=== PATIENT | male | born 1945 | race Caucasian/White ===

== ENCOUNTER → 2020-11-03 | Day surgery (SDC) | payer MEDICARE ==
[~2020-11-03] MED LIST: ALLOPURINOL100 MG PO; BRILINTA90 MG PO; CHILDREN'S ASPI81 MG PO; LEVOTHYROXINE50 MC1 PO; PRINIVIL20 MG PO
== END | disposition home or self-care (01) ==
LOC: CATH 10-26 07:30
DX: I08.3 Combined rheumatic disorders of mitral, aortic and tricuspid valves (principal); I25.10 Atherosclerotic heart disease of native coronary artery without angina pectoris; I42.9 Cardiomyopathy, unspecified; I12.9 Hypertensive chronic kidney disease with stage 1 through stage 4 chronic kidney disease, or unspecified chronic kidney disease; N18.9 Chronic kidney disease, unspecified; I25.2 Old myocardial infarction; E78.49 Other hyperlipidemia; E89.0 Postprocedural hypothyroidism; M10.9 Gout, unspecified; Z95.5 Presence of coronary angioplasty implant and graft; Z88.0 Allergy status to penicillin; Z88.8 Allergy status to other drugs, medicaments and biological substances; Z79.82 Long term (current) use of aspirin; Z79.899 Other long term (current) drug therapy; Z20.822 Contact with and (suspected) exposure to COVID-19
CPT/HCPCS: 93312; J1200; J2250; J2310; J3010; J7040; U0002